=== PATIENT | female | born 1975 | race Caucasian/White ===

== ENCOUNTER 2017-10-17 19:10 | Emergency (ER) | payer MEDICAID ==
[~2017-10-17] VITALS: Ht 154.9 cm; Wt 63.5 kg
[2017-10-17 19:43] VITALS: BP 111/84
--- NOTE | 2017-10-17 19:45 | NUR ---
PT TRIAGED AND SENT TO ER [facility], SHELLY AWARE.
--- NOTE | 2017-10-17 22:19 | NUR ---
PT C/O HEADACHE AND ANXIETY FOR 2 WEEKS. DENIES CP/SOB, N/V/D. NO OTHER COMPLAINTS AT THIS TIME. VSS, NAD NOTED. WILL CONTIINUE TO MONITOR.
--- NOTE | 2017-10-17 23:43 | NUR ---
AWAITING DISCHARGE DISPOSTION FROM DR QUINTERO
[2017-10-17] MEDS ORDERED: CYCLOBENZAPRINE 10 MG TAB PO ONE (23:45)
[2017-10-17] MEDS ORDERED: KETOROLAC 30 MG/ML VIAL IM ONE (23:45)
[2017-10-18 00:17] VITALS: BP 119/87
--- NOTE | 2017-10-18 00:17 | NUR ---
Patient discharged with v/s stable. Written and verbal after care instructions given and explained. Patient alert, oriented and verbalized understanding of instructions. Ambulatory with steady gait. All questions addressed prior to discharge. ID band removed. Patient advised to follow up with PMD. Rx of MOTRIN AND FLEXERIL given. Patient educated on indication of medication including possible reaction and side effects. Opportunity to ask questions provided and answered.
== END 2017-10-18 00:17 | disposition home or self-care (01) ==
LOC: MED 19:10
DX: S46.912A Strain of unspecified muscle, fascia and tendon at shoulder and upper arm level, left arm, initial encounter (principal); F41.9 Anxiety disorder, unspecified; X58.XXXA Exposure to other specified factors, initial encounter; Y93.89 Activity, other specified; Y92.89 Other specified places as the place of occurrence of the external cause; Y99.8 Other external cause status
CPT/HCPCS: 81025; 96372; 99283; J1885

== ENCOUNTER 2019-03-01 18:50 | Emergency (ER) | payer MEDICAID ==
[~2019-03-01] VITALS: Ht 157.5 cm; Wt 69.0 kg
[2019-03-01 19:05] VITALS: BP 123/85
--- NOTE | 2019-03-01 19:10 | NUR ---
AMBULATED TO BED 03 WITH UPRIGHT STEADY GAIT. URINE CUP PROVIDED. TAKEN TO FOR SAMPLE COLLECTION. Addendum: 03/01/19 at 1923 by [facility] REPORT GIVEN TO RADHA PINEDA.
--- NOTE | 2019-03-01 19:33 | NUR ---
43 Y/O FEMALE C/O ULQ PAIN AND RT EAR PAIN X 1 MONTH. RATES PAIN 9/10 AND DESCRIBES IT TWISTING AND PRESSURE. ABD IS ROUND, SOFT, ACTIVE BS, AND TENDERNESS ON LUQ. PT STATES THE PAIN COMES AND GOES AND HAS EPISODES OF DIAHRREA WHEN SHE HAS PAIN. TOTAL DIAHRREA EPISODES TODAY WAS 2. DENIES FEVER,N,V,BLOOD IN STOOL, OR BLOOD IN URINE. DENIES DYSURIA OR BURNING SENSATION. PT SAYS SHE GETS CLEAR DRAINAGE COMING OUT OF THE RIGHT EAR AND SAYS SHE HAS HEARING CHANGES. SHE SAYS IT SOUNDS LIKE ITS CLOGGED. VSS. NKA. NO PMH.
[2019-03-01] MEDS ORDERED: FAMOTIDINE 20 MG TAB PO ONE (19:55)
[2019-03-01] MEDS ORDERED: DICYCLOMINE HCL LIQUID 20 MG, ALUMINUM HYD/MAG/SIMETHICONE 30 ML, LIDOCAINE VISCOUS 2% ... PO ONE ×3 (19:55)
[2019-03-01] MEDS ORDERED: ALUMINUM HYD/MAG/SIMETHICONE 30 ML UDC PO ONE (19:55)
[2019-03-01] MEDS ORDERED: LIDOCAINE VISCOUS 2% 20 ML UDC ONE (20:09)
[2019-03-01] MEDS ORDERED: DICYCLOMINE HCL LIQUID 10 MG/5 ML UDC ONE (20:10)
[2019-03-01] MEDS ORDERED: ALUMINUM HYD/MAG/SIMETHICONE 30 ML UDC ONE (20:10)
[2019-03-01 21:01] LABS: BASOPHILS % (AUTO) 0.6 % (0.0-2.0); EOSINOPHILS # (AUTO) 0.2 K/uL (0-0.4); EOSINOPHILS % (AUTO) 2.4 % (0.0-4.0); HEMATOCRIT 37.6 % (36-48); HEMOGLOBIN 11.6 g/dL (12.0-16.0); LYMPHOCYTES # (AUTO) 1.5 K/uL (2.5-16.5); LYMPHOCYTES % (AUTO) 17.9 % (20.5-51.1); MEAN CORPUSCULAR HEMOGLOBIN 25 pg (27-31); MEAN CORPUSCULAR HGB CONC 31 g/dL (33-37); MEAN CORPUSCULAR VOLUME 79.5 fL (80-94); MONOCYTES # (AUTO) 0.6 K/uL (0.8-1.0); MONOCYTES % (AUTO) 7.6 % (1.7-9.3); NEUTROPHILS # (AUTO) 5.8 K/uL (1.8-7.7); NEUTROPHILS % (AUTO) 71.5 % (42.2-75.2); PLATELET COUNT (AUTO) 195 K/uL (140-450); RED BLOOD CELL COUNT(AUTO) 4.73 MIL/uL (4.20-5.40); RED CELL DISTRIBUTION WIDTH 34.1 % (11.6-13.7); WHITE BLOOD COUNT (AUTO) 8.1 K/uL (4.8-10.8)
[2019-03-01 21:17] LABS: APPEARANCE,URINE CLEAR (CLEAR); BILIRUBIN,URINE NEGATIVE (NEGATIVE); BLOOD, URINE 1+ (NEGATIVE); LEUKOCYTE ESTERASE ,URINE 1+ (NEGATIVE); NITRITE, URINE NEGATIVE (NEGATIVE); UGLUCOSE NEGATIVE (NEGATIVE)
[2019-03-01 21:25] LABS: ALBUMIN 3.5 g/dL (3.4-5.0); ANION GAP 10.4 (8-16); CARBON DIOXIDE 29.6 mmol/L (21-32); CREATININE 0.7 mg/dL (0.6-1.3); TOTAL BILIRUBIN 0.2 mg/dL (0.0-1.0)
[2019-03-01 21:30] LABS: COLOR,URINE STRAW (YELLOW)
[2019-03-01 21:39] LABS: RBC,URINE 0 /HPF (0-5); WBC,URINE 0-5 /HPF (0-5)
[2019-03-01 22:19] VITALS: BP 123/85
--- NOTE | 2019-03-01 22:21 | NUR ---
Patient discharged with v/s stable. Written and verbal after care instructions given and explained. Patient verbalized understanding. Ambulatory with steady gait. All questions addressed prior to discharge. Advised to follow up with PMD.
== END 2019-03-01 22:21 | disposition home or self-care (01) ==
LOC: MED 18:50
DX: R10.12 Left upper quadrant pain (principal)
CPT/HCPCS: 36415; 80053; 81001; 81025; 82150; 83690; 85025; 87086; 99283

== ENCOUNTER 2022-06-11 04:28 | Emergency (ER) | payer MEDICAID ==
[~2022-06-11] VITALS: Ht 152.4 cm; Wt 72.6 kg
[2022-06-11 04:48] VITALS: BP 150/97
--- NOTE | 2022-06-11 06:58 | NUR ---
PT AMBULATED TO BED 7
--- NOTE | 2022-06-11 07:09 | NUR ---
ASSUMED CARE , PT TO ED FOR EVALUATION OF CONGESTION AND ITCHING IN HER EARS, LAW, ONSET X2 WEEKS, NO FEVERS
--- NOTE | 2022-06-11 07:22 | NUR ---
REPORT GIVEN TO ROWDY GARCIA MD WAS AT BS TO EXAMINE PT
--- NOTE | 2022-06-11 07:22 | NUR ---
REPORT RECEIVED FROM CHUY RN, TRANSFER OF CARE AT THIS TIME
[2022-06-11] MEDS ORDERED: ACETAMINOPHEN EXTRA STRENGTH 500 MG TAB PO ONE (07:25)
--- NOTE | 2022-06-11 07:32 | NUR ---
X-Ray at bedside.
--- NOTE | 2022-06-11 07:49 | NUR ---
46 Y/O FEMALE BIB C/O CONGESTION, COUGH, BILATERAL EAR ITCHING X3 WEEKS. DENIES ANY DISCHARGE, HEARING LOSS. TOOK ZYRTEC FOR ALLERGIES WITH NO RESOLUTION OF RESPIRATORY S/S,. NKA PMH: DENIES
[2022-06-11] MEDS ORDERED: CETI10TA81 PO (08:26)
[2022-06-11] MEDS ORDERED: FLONAS NS (08:26)
[2022-06-11] MEDS ORDERED: BENZ200C4 PO (08:26)
[2022-06-11] MEDS ORDERED: LID5T TP (08:26)
[2022-06-11 08:45] VITALS: BP 150/97
--- NOTE | 2022-06-11 08:46 | NUR ---
Patient discharged with v/s stable. Written and verbal after care instructions given and explained. Patient alert, oriented and verbalized understanding of instructions. Ambulatory with steady gait. All questions addressed prior to discharge. ID band removed. Patient advised to follow up with PMD. Rx of Benzonatate, Zyrtec, Flonase nasal, Lidoderm 5% patch given. Patient educated on indication of medication including possible reaction and side effects. Opportunity to ask questions provided and answered.
== END 2022-06-11 08:45 | disposition home or self-care (01) ==
LOC: MED 04:28
DX: J06.9 Acute upper respiratory infection, unspecified (principal); B34.9 Viral infection, unspecified; M54.50 Low back pain, unspecified; H92.03 Otalgia, bilateral; Z79.899 Other long term (current) drug therapy
CPT/HCPCS: 71045; 99283; Q0092

== ENCOUNTER 2022-07-08 20:26 | Emergency (ER) | payer MEDICAID ==
[~2022-07-08] VITALS: Ht 154.9 cm; Wt 73.0 kg
[~2022-07-08 20:26] MED LIST: BENZ200C4 PO; CETI10TA81 PO; FLONAS NS; LID5T TP
[2022-07-08 21:35] VITALS: BP 134/66
--- NOTE | 2022-07-08 21:39 | NUR ---
PT TO LOBBY. MD ASSESSED IN TRIAGE
[2022-07-08] MEDS ORDERED: AMOX875T3 PO (21:41)
[2022-07-08] MEDS ORDERED: SUD30 PO (21:41)
[2022-07-08] MEDS ORDERED: IBUP-2213 PO (21:41)
[2022-07-08 22:15] VITALS: BP 134/66
--- NOTE | 2022-07-08 22:15 | NUR ---
Patient discharged with v/s stable. Written and verbal after care instructions given and explained. Patient alert, oriented and verbalized understanding of instructions. Ambulatory with steady gait. All questions addressed prior to discharge. ID band removed. Patient advised to follow up with PMD. Rx of TYLENOL AND KEFLEX given. Patient educated on indication of medication including possible reaction and side effects. Opportunity to ask questions provided and answered.
== END 2022-07-08 22:15 | disposition home or self-care (01) ==
LOC: MED 20:26
DX: H66.93 Otitis media, unspecified, bilateral (principal); R09.81 Nasal congestion
CPT/HCPCS: 99283